=== PATIENT | male | born 1955 | race Caucasian/White ===

== ENCOUNTER 2016-11-29 05:56 | Day surgery (SDC) | payer OTHER ==
--- NOTE | ~2016-11-29 | EGD ---
EGD REPORT [facility] [address] [place] [address] NAME: ROCCO YAN : 59 STATUS : REG [facility] PAT#: [id number] AGE: 61 ADM/REG DATE : 11/29/16 MR#: [id number] REPORT SERV DATE: 11/29/16 DICTATED BY: ROCCO GONZALEZ DATE: 11/29/16 REPORT STATUS : Draft TRANSCRIBED BY: [employer] DATE: 11/29/16 [facility] Patient Name: Rocco Yan Date of : 1955 Attending MD: ROCCO GONZALEZ MD Procedure Date No Time: 11/29/2016 Procedure: Colonoscopy Indications: Screening for colorectal malignant neoplasm, This is the patient's first colonoscopy Referring MD: JESIKA MUÑOZ MD Medicines: See the Anesthesia note for documentation of the administered medications Complications: No immediate complications. Procedure: Pre-Anesthesia Assessment: - ASA Grade Assessment: III - A patient with severe systemic disease. After I obtained informed consent, the scope was passed under direct vision. Throughout the procedure, the patient's blood pressure, pulse, and oxygen saturations were monitored continuously. The CF [id number] was introduced through the anus and advanced to the cecum, identified by appendiceal orifice and ileocecal valve. The colonoscopy was performed without difficulty. The patient tolerated the procedure well. The quality of the bowel preparation was adequate. Findings: The perianal and digital rectal examinations were normal. Diverticula were found in the sigmoid colon. Internal hemorrhoids were found during retroflexion and were medium-sized. A sessile polyp was found in the recto-sigmoid colon. The polyp was 10 mm in size. The polyp was removed with a hot snare. Resection and retrieval were complete. Three sessile polyps were found in the distal rectum. The polyps were small in size. These polyps were removed with a cold biopsy forceps. Resection and retrieval were complete. Two sessile polyps were found in the rectum. The polyps were small in size. These polyps were removed with a cold biopsy forceps. Resection and retrieval were complete. Impression: - Diverticulosis in the sigmoid colon. - Internal hemorrhoids. - One 10 mm polyp at the recto-sigmoid colon. Resected and retrieved. EGD REPORT [address] [address] NAME: DEBORAHROCCO RAMIREZ : 59 STATUS : REG [facility] PAT#: [id number] AGE: 61 ADM/REG DATE : 11/29/16 MR#: [id number] REPORT SERV DATE: 11/29/16 DICTATED BY: ROCCO GONZALEZ P DATE: 11/29/16 REPORT STATUS : Draft TRANSCRIBED BY: [employer] DATE: 11/29/16 - Three small polyps in the rectum. Resected and retrieved. - Two small polyps in the rectum. Resected and retrieved. Recommendation: - Patient has a contact number available for emergencies. The signs and symptoms of potential delayed complications were discussed with the patient. Return to normal activities tomorrow. Written discharge instructions were provided to the patient. - Regular diet. - Continue present medications. - Repeat colonoscopy for surveillance based on pathology results. - FOR YOUR BIOPSY RESULTS: Please go to [email or web address] and register to receive your results via the portal. Your biopsy results will be posted there in about 7 to 10 days. IF you do not see result in 10 days, call office. Procedure Code(s): --- Professional --- 60829, Colonoscopy, flexible, proximal to splenic flexure; with removal of tumor(s), polyp(s), or other lesion(s) by snare technique 70689, 59, Colonoscopy, flexible, proximal to splenic flexure; with biopsy, single or multiple Diagnosis Code(s): --- Professional --- K64.8, Other hemorrhoids K57.30, Diverticulosis of large intestine without perforation or abscess without bleeding K62.1, Rectal polyp D12.7, Benign neoplasm of rectosigmoid junction Z12.11, Encounter for screening for malignant neoplasm of colon CPT copyright 2013 [employer]. All rights reserved. The codes documented in this report are preliminary and upon slots manager review may be revised to meet current compliance requirements. Rocco Gonzalez MD ROCCO GONZALEZ MD 11/29/2016 8:15 AM This report has been signed electronically. Number of Addenda: 0 EGD REPORT [facility] [address] [address] NAME: ROCCO YAN : [birth year] STATUS : REG [facility] PAT#: [id number] AGE: 61 ADM/REG DATE : 11/29/16 MR#: [id number] REPORT SERV DATE: 11/29/16 DICTATED BY: ROCCO GONZALEZ DATE: 11/29/16 REPORT STATUS : Draft TRANSCRIBED BY: [employer] DATE: 11/29/16 Note Initiated On: 11/29/2016 7:44 AM Scope Withdrawal Time 0 hours 14 minutes 52 seconds [address] [id number]
[~2016-11-29 05:56] MED LIST: ASAB PO; CELEXA20 PO; COREG25 PO; CRESTOR20 MG PO; DIABETA5 PO; FISH-EPA1000 MG PO; FLOMAX4 PO; GLUCOPHAGE1000 MG PO; GLUCOTROL5 PO; INVOKAMET PO; JANUVIA100 MG PO; LOFIB160 PO; LOPID6 PO; MULTIPLE VIT PO; MULTIVITAMI1 PO; NIASPAN500 PO; NORV5 PO; PLAVIX PO; PRIN10 PO; PRIN20 PO; TOPXL100 PO; VITAMIN B-12; VITAMIN B-121000 MC1 SL; VITAMIN D; VITAMIN D1000 UNI1 PO; VITAMIN E; VITC500 PO
== END 2016-11-29 23:59 | disposition home health service (06) ==
LOC: DMU 05:56
PROVIDERS: Internal Medicine Gastroenterology
PROC: 0DBP8ZX Excision of Rectum, Via Natural or Artificial Opening Endoscopic, Diagnostic (ICD-10-PCS; principal; 2016-11-29 08:00)
PROC: 0DBN8ZZ Excision of Sigmoid Colon, Via Natural or Artificial Opening Endoscopic (ICD-10-PCS; 2016-11-29 08:00)
DX: Z12.11 Encounter for screening for malignant neoplasm of colon (principal); K62.1 Rectal polyp; K57.30 Diverticulosis of large intestine without perforation or abscess without bleeding; K64.8 Other hemorrhoids; I10 Essential (primary) hypertension; G47.33 Obstructive sleep apnea (adult) (pediatric); J44.9 Chronic obstructive pulmonary disease, unspecified; E11.9 Type 2 diabetes mellitus without complications; I25.119 Atherosclerotic heart disease of native coronary artery with unspecified angina pectoris; F32.9 Major depressive disorder, single episode, unspecified; E78.00 Pure hypercholesterolemia, unspecified; Z79.02 Long term (current) use of antithrombotics/antiplatelets; Z79.899 Other long term (current) drug therapy; Z99.81 Dependence on supplemental oxygen; F17.210 Nicotine dependence, cigarettes, uncomplicated
CPT/HCPCS: 71010; 82962; 88305; 94640; A9270-GY